=== PATIENT | female | born 1970 | race Caucasian/White ===

== ENCOUNTER → 2017-04-23 | Outpatient (CLI) | payer OTHER ==
--- NOTE | 2017-04-23 16:55 | KCIC ---
Bilateral digital screening mammogram History: Annual screening mammography Comparison: February 25, 2016 Findings: Breast Tissue Density B :There are scattered areas of fibroglandular density. Bilateral digital mammogram images are obtained with CAD. No suspicious masses, architectural distortion, or grouped microcalcifications are identified. Impression: Negative exam. Recommend screening mammogram in one year. BI-RADS Category 1: Negative. PQRS compliance statement - Patient information was entered into a reminder system with a target due date for the next mammogram. Electronically signed by: Yoly Elizondo MD (04/23/2017 4:52 PM) [id number]
== END | disposition home or self-care (01) ==
LOC: KCIC MAMMO 15:41
PROVIDERS: ATTEND Nurse Practitioner
DX: Z12.31 Encounter for screening mammogram for malignant neoplasm of breast (principal)
CPT/HCPCS: G0202; 77067

== ENCOUNTER → 2018-06-11 | Outpatient (CLI) | payer OTHER ==
--- NOTE | 2018-06-11 15:09 | KCIC ---
Bilateral digital screening mammograms: Reason for examination: Routine screening. Comparison is made to previous studies dated 04/23/2017 and 02/25/2016. Interpretation was made with the benefit of CAD. The skin and nipples show no abnormalities. No abnormal axillary lymph nodes are seen. The breast parenchyma shows scattered fibroglandular density. (Breast density: Category B.) There continues to be a small nodule consistent with a intramammary lymph node at the 10:00 C position of the right breast which is stable. There are however new nodules present centrally in the 6:00 B position of the right breast and medially at the 10:00 B position of the left breast. Recommend further evaluation with ultrasound. There are no other dominant masses, suspicious calcifications or architectural distortions. Impression: New nodules seen bilaterally. These may represent cysts but recommend further evaluation with ultrasound. BI-RADS Category 0: Incomplete. Needs additional imaging evaluation. "Our facility is accredited by the [employer] Mammography [employer]." This patient's information has been entered into a reminder system for the patient to be notified with the results of her examination and a target date for the next mammogram. Electronically signed by: Kim Jackson MD (06/11/2018 3:05 PM) [id number]
== END | disposition home or self-care (01) ==
LOC: KCIC MAMMO 13:58
PROVIDERS: ATTEND Nurse Practitioner
DX: Z12.31 Encounter for screening mammogram for malignant neoplasm of breast (principal)
CPT/HCPCS: 77067

== ENCOUNTER → 2018-06-13 | Outpatient (CLI) | payer OTHER ==
--- NOTE | 2018-06-13 10:45 | KCIC ---
Bilateral breast ultrasound: Reason for examination: Nodular densities on screening mammogram. Comparison is made to mammographic exam dated 06/11/2018. Ultrasound examination was performed in the areas of mammographic concern and at the axilla bilaterally. In the right breast, at the 8:00 position 4.5 cm from the nipple, there is a 6.8 mm hypoechoic fibrocystic lesion in parallel orientation. In the 3:00 position 2 cm from the nipple, there is a 3.3 mm hypoechoic fibrocystic type lesion. In the 10:00 position 3 cm from the nipple, there is a 6.1 mm fibrocystic lesion in parallel orientation. In the 10:00 position 8 cm from the nipple, there is a nodule consistent with an intramammary lymph node which is stable mammographically. No suspicious appearing lymph nodes are seen in the right axilla. In the left breast at the 10:00 position 6 cm from the nipple, there is a 4.9 mm fibrocystic lesion. No suspicious nodules are seen in the left axilla. IMPRESSION: Benign-appearing fibrocystic type lesions bilaterally. Recommend 6 month sonographic follow-up. BI-RADS Category 3: Probably Benign. "Our facility is accredited by the [employer] Mammography [employer]." This patient's information has been entered into a reminder system for the patient to be notified with the results of her examination and a target date for the next mammogram. Electronically signed by: Kim Jackson MD (06/13/2018 10:40 AM) [id number]
== END | disposition home or self-care (01) ==
LOC: KCIC US 09:56
PROVIDERS: ATTEND Nurse Practitioner
DX: N63.22 Unspecified lump in the left breast, upper inner quadrant (principal); N63.13 Unspecified lump in the right breast, lower outer quadrant
CPT/HCPCS: 76641